=== PATIENT | female | born 1945 | race Caucasian/White ===

== ENCOUNTER 2022-01-29 17:34 | Inpatient (IN) | payer MEDICARE, MEDICAID ==
[~2022-01-29] VITALS: Ht 152.4 cm; Wt 91.2 kg
[2022-01-29] MEDS ORDERED: IV NORMAL SALINE 1,000ML 1,000 ML IV ONE ×2 (17:45→20:00)
--- NOTE | 2022-01-29 17:50 | PHYS DOC ---
Past History Past Surgical History: No Surgical History (KAROLINA ELLER DO) General Adult EDM: Chief Complaint: MECHANICAL FALL HPI: HPI: 77-year-old female presents after mechanical fall at home. The patient states that she was drinking alcohol 3 days ago fell and laid on the floor for 3 days. She states she has not had any alcohol since that time. The patient states this is happened before. She felt a little bit better after 3 days so she did not come the emergency room last time. This time she has a chief complaint of posterior left thigh pain. The pain is a tightness "like a pulled muscle". It is most painful when she tries to put weight on it. She denies back pain. She has no other specific complaints. (KAROLINA ELLER DO) Review of Systems: Review of Systems: Constitutional: Denies fever or chills Eyes: Denies change in visual acuity HENT: Denies nasal congestion or sore throat Respiratory: Denies cough or shortness of breath Cardiovascular: Denies chest pain or edema GI: Denies abdominal pain, nausea, vomiting, bloody stools or diarrhea : Denies dysuria Musculoskeletal: Left posterior thigh pain Integument: Denies rash Neurologic: Denies headache, focal weakness or sensory changes Endocrine: Denies polyuria or polydipsia Lymphatic: Denies swollen glands Psychiatric: Denies depression or anxiety (KAROLINA ELLER DO) Current Medications: Current Meds: Current Medications Medications (Trade) Dose Ordered Sig/Grace Start Time Stop Time Status Last Admin Dose Admin Sodium Chloride 1,000 ml @ 1,000 mls/hr 1X ONCE 01/29/22 17:45 01/29/22 18:44 (KAROLINA ELLER DO) Allergies: Allergies: Allergies Coded Allergies Type Severity Reaction Last Updated Verified Penicillins Allergy Intermediate 01/29/22 Yes (KAROLINA ELLER DO) Physical Exam: PE: Constitutional: Well developed, well nourished, unkept, no acute distress, non- toxic appearance. [] HENT: Normocephalic, atraumatic, bilateral external ears normal, oropharynx moist, no oral exudates, nose normal. [] Eyes: PERRLA, EOMI, conjunctiva normal, no discharge. [] Neck: Normal range of motion, no tenderness, supple, no stridor. [] Cardiovascular: Heart rate regular rhythm, no murmur [] Lungs & Thorax: Bilateral breath sounds clear to auscultation [] Abdomen: Bowel sounds normal, soft, no tenderness, no masses, no pulsatile masses. [] Skin: Warm, dry, no erythema, no rash. [] Back: No tenderness, no CVA tenderness. [] Extremities: No tenderness, no cyanosis, no clubbing, ROM intact, no edema. [] Neurologic: Alert and oriented X 3, normal motor function, normal sensory function, no focal deficits noted. [] Psychologic: Affect normal, judgement normal, mood normal. [] (KAROLINA ELLER DO) Current Patient Data: Vital Signs: Vital Signs Date Time Temp Pulse Resp B/P (MAP) Pulse Ox O2 Delivery O2 Flow Rate FiO2 01/29/22 17:39 85 20 155/71 (99) 98 (KAROLINA ELLER DO) EKG: EKG: [] (KAROLINA ELLER DO) Radiology/Procedures: Radiology/Procedures: [] (KAROLINA ELLER DO) Heart Score: C/O Chest Pain: N/A Risk Factors: Risk Factors: DM, Current or recent (<one month) smoker, HTN, HLP, family history of CAD, obesity. Risk Scores: Score 0 - 3: 2.5% MACE over next 6 weeks - Discharge Home Score 4 - 6: 20.3% MACE over next 6 weeks - Admit for Clinical Observation Score 7 - 10: 72.7% MACE over next 6 weeks - Early Invasive Strategies (KAROLINA ELLER DO) Course & Med Decision Making: Course & Med Decision Making Pertinent Labs and Imaging studies reviewed. (See chart for details) The patient's initial exam was benign. She had no obvious discomfort with movement of the left leg. She did wince slightly when I pressed on her left hip but she states that it does not hurt. I have ordered labs as well as left hip x-rays just to be sure. The patient's work-up is pending. I am signing the patient out to to the fast food shift lead at 1800. [] (KAROLINA ELLER DO) Course & Med Decision Making Soren -patient's imaging and labs are unremarkable but she does have significant proteinuria and ketonuria. She was given IV fluids in the emergency department. Unfortunately patient is failing to thrive. She will be admitted for further observation and treatment and likely placement. (JENNIFER GARCIA DO) Dragon Disclaimer: Dragon Disclaimer: This electronic medical record was generated, in whole or in part, using a voice recognition dictation system. (KAROLINA ELLER DO) Departure Departure: Impression: Primary Impression: Failure to thrive in adult Additional Impressions: Inability to ambulate due to multiple joints Proteinuria Ketonuria Disposition: ADMITTED INPATIENT Admitting Physician: Tan Mora (JENNIFER GARCIA DO) Condition: STABLE KAROLINA ELLER DO January 29, 2022 17:50 JENNIFER GARCIA DO January 29, 2022 20:12
--- NOTE | 2022-01-29 18:16 | RAD ---
Exam: Left hip 2 views INDICATION: Fall, left hip and pelvic pain TECHNIQUE: Frontal view of pelvis with frontal and frog-leg lateral views left hip Comparisons: None FINDINGS: Bone mineralization is normal. No acute fractures. Soft tissues are unremarkable. Joint spaces are we ll-maintained. IMPRESSION: No acute osseous abnormality Electronically signed by: Reina Bah MD (01/29/2022 6:14 PM) KANDI
[2022-01-29 18:23] LABS: BASO # 0.1 x10^3/uL (0.0-0.2); BASO % 1 % (0-3); EOS # 0.1 x10^3/uL (0.0-0.7); EOS % 1 % (0-3); HEMATOCRIT 48.3 % (36.0-47.0); HEMOGLOBIN 16.1 g/dL (12.0-15.5); LYMPH % 13 % (24-48); MEAN CORPUSCULAR HEMOGLOBIN 30 pg (25-35); MEAN CORPUSCULAR HGB CONC 33 g/dL (31-37); MEAN CORPUSCULAR VOLUME 90 fL (79-100); MONO # 0.5 x10^3/uL (0.0-1.1); MONO % 6 % (0-9); NEUT # 6.5 x10^3uL (1.8-7.7); NEUT % 79 % (31-73); PLATELET COUNT 221 x10^3/uL (140-400); RED BLOOD COUNT 5.38 x10^6/uL (3.50-5.40); RED CELL DISTRIBUTION WIDTH 17.2 % (11.5-14.5); WHITE BLOOD COUNT 8.2 x10^3/uL (4.0-11.0)
[2022-01-29 18:56] LABS: CALCIUM 9.9 mg/dL (8.5-10.1); CREATININE 0.7 mg/dL (0.6-1.0); GFR 81.6; POTASSIUM 3.9 mmol/L (3.5-5.1)
[2022-01-29 19:09] LABS: ALBUMIN 3.6 g/dL (3.4-5.0); ALBUMIN/GLOBULIN RATIO 1.3 (1.0-1.7); TOTAL PROTEIN 6.3 g/dL (6.4-8.2)
[2022-01-29 19:32] LABS: BARBITURATES NEG (NEG); BENZODIAZEPINES NEG (NEG); CANNABINOIDS NEG (NEG); COCAINE NEG (NEG); METHADONE NEG (NEG); OPIATES NEG (NEG); PHENCYCLIDINE NEG (NEG)
[2022-01-29 19:33] LABS: AMPHETAMINE/METHAMPHETAMINE NEG (NEG)
[2022-01-29 19:51] LABS: BACTERIA,URINE FEW /HPF (0-FEW); CLARITY,URINE CLEAR; COLOR,URINE YELLOW; GLUCOSE,URINE NEG (NEG); NITRITE,URINE NEG (NEG); RBC,URINE OCC /HPF (0-2); SQUAMOUS EPITHELIAL CELL,UR FEW /LPF; UROBILINOGEN,URINE 0.2 mg/dL (0.2 mg/dL)
[2022-01-29] MEDS ORDERED: ONDANSETRON PF 4 MG/2 ML VIAL. IVP PRN (20:15)
[2022-01-29] MEDS ORDERED: MORPHINE SULFATE 2 MG/ML DISP.SYRIN. IVP PRN (20:15)
[2022-01-29 22:10] VITALS: BP 174/84
--- NOTE | 2022-01-29 22:10 | NUR ---
77 y/o female admitted to 109 per EMS from ED. Pt. states she drank too much on the evening of 01/26/22 et fell et was unable to get up. Pt. states she remained on the floor until today when she was taken to the ED. She states during that time she had not eaten because she was unable to reach food et was only able to drink orange juice et water. Pt. refused offer of sandwich or other snack. Pt. states she is an alcoholic and drinks approximately 1/4 a gallon of Aki Rey per day. She states she is et has no children. Her only living sibling is a brother in [place]. She lives alone. Pt. states she was in AA 6 years ago but relapsed 3 years ago et has just drank increased amounts since then. Denies any emotional trigger causing her increase in drinking. States she uses a walker or four legged cane at home for balance when walking. Pt denies any medical problems or current medications except PRN OTC ibuprofen or TUMS. Pt. states the only reason she came to the ED today was because when she tries to straighten her left leg out it causes pain in the back of her thigh. She states she is unable to stand because of this. When pt. was placed on bedpan she was able to turn from side to side. No bruising or redness noted to back of left thigh. Pillow placed under knee for support. Pt. denies discomfort at rest.
[2022-01-30 03:00] VITALS: BP 154/80
[2022-01-30 05:31] VITALS: BP 178/84
--- NOTE | 2022-01-30 06:26 | NUR ---
AM assessment completed. Pt. continues to c/o left dorsal thigh pain with movement. Pt. requests bedpan. Refuses to attempt to get up to BSC or bathroom. Is able to lift off bed for bedpan insertion without difficulty. Pt able to straighten left leg this AM. No changes from previous assessment. Has rested quietly through majority of NOC.
--- NOTE | 2022-01-30 08:33 | NUR ---
Pt states she struggles to straighten left leg d/t posterior thigh pain. She pointed to a spot above her posterior left knee, cramping pain. She wants to sleep and wants to save her breakfast for later. Pt alcohol use discussed. Pt states she drinks because she is unhappy and with her life and has "nothing to show for" her 77 years. She states solitude is easier than justifying her life choices to others. We discussed things about her life she doesn't like and things she used to enjoy. She likes to read biographies and may have an interest in volunteering at the [employer] to keep her busy and social if she had a way to get there. Usually she uses a taxi to shop but doesn't like to pay for it so she spends the money on alcohol. Pt states she doesn't bathe. Encouraged pt to take a shower or bed bath. She agreed to possibly later. Will offer again after breakfast.
--- NOTE | 2022-01-30 09:38 | HP ---
DATE OF SERVICE: 01/30/2022 ADMIT DATE: 01/29/2022 ATTENDING PHYSICIAN: Dr. Mora. CHIEF COMPLAINT: Fall at home. HISTORY OF PRESENT ILLNESS: The patient is a 77-year-old female who lives alone. She is an alcoholic. She drinks a half a gallon of Jovani Beam every 3-4 days. She fell 3 days ago. She laid on the floor for 3 days, could not get up. There is no evidence of rhabdomyolysis. She presented to the ED. No obvious long bone fractures. She is very depressed. She is self medicating. She cannot take care of herself. She cannot bear weight on the left leg. She is admitted then for further treatment. She has a history remotely of alcohol withdrawal seizures. She has not had a DUI. ALLERGIES: SHE HAS ALLERGIES TO PENICILLIN. PAST SURGICAL HISTORY: There is no surgical history. SOCIAL HISTORY: She lives in a subsidized section 8 housing here in [facility]. ALLERGIES: She has no other family members available. She is retired as a account receivable clerk. CURRENT MEDICATIONS: None. ALLERGIES: None. SOCIAL HISTORY: She is a nonsmoker. Alcohol use, Jovani Beam is a preferred bourbon of choice, a half a gallon will last her 3-4 days. She prefers to mix it with Coca-Cola. FAMILY HISTORY: Father was an electrical experimental mechanic who ended up working in the [employer], but he at age 57. Mom of old age, exact details are unclear. No other family available. No children. REVIEW OF SYSTEMS: Significant for the chronic alcohol use. There is underlying depression. All other systems reviewed and turned out to be negative. PHYSICAL EXAMINATION: GENERAL: When I saw her, this is a pleasant elderly female. VITAL SIGNS: Her initial vital signs showed a blood pressure of 170/64, pulse is 80 and regular. She was afebrile, oxygen saturation 98% on room air. HEENT: Head is without trauma. Pupils are reactive. Sclerae nonicteric. The oropharynx is clear. NECK: Supple, no bruits identified. LUNGS: Otherwise clear. CARDIOVASCULAR: Regular heart tones. ABDOMEN: Soft. EXTREMITIES: Without edema. I examined her legs. There is decreased range of motion of the left leg. There is no obvious effusion. She is able to lift her leg up against gravity. It hurts to bear weight. There is no obvious bruising or open wounds. No obvious long bone fractures. PERTINENT LABORATORY STUDIES: Her hemoglobin is 16.1 g/dL with a white count of 6200. Electrolytes, BUN and creatinine all within normal range. Lactate was normal. Transaminases are normal. ASSESSMENT: 1. A 77-year-old female with mechanical fall at home. 2. Chronic alcoholism. 3. Underlying depression with self medication. 4. Essential hypertension related to alcohol use. PLAN: 1. Admit to the inpatient unit. 2. We shall monitor her blood pressure. 3. Monitor for signs of withdrawal. 4. Diet as tolerated. 5. Social service will discuss with the patient. She needs a higher level of care. We will try to get her to a subacute rehab next week. RADHA DR: Sergei TID: [id number]
[2022-01-30] MEDS: LIDOCAINE (700MG/PATCH) PATCH. TD SCH (09:45)
[2022-01-30 11:00] VITALS: BP 179/69
[2022-01-30 15:00] VITALS: BP 167/73
[2022-01-30 19:10] VITALS: BP 184/82
[2022-01-30] MEDS: PATCH REMOVAL. MC SCH (21:00)
[2022-01-30 23:00] VITALS: BP 184/82
[2022-01-31 03:00] VITALS: BP 170/78
[2022-01-31 06:00] VITALS: BP 186/91
--- NOTE | 2022-01-31 06:17 | NUR ---
AM assessment completed. Pt. cont. to refuse to attempt using BSC or bathroom. Requests bedpan only. Pt. is able to put feet on bed, bend knees and pull self up in bed using upper side rails without assist. Pt. puts feet on bed, bends knees et lifts buttocks up off bed for bedpan without difficulty. Denies discomfort this AM. States left posterior thigh still hurts "If I bend it just right". No changes from previous assessment.
[2022-01-31] MEDS: LIDOCAINE (700MG/PATCH) PATCH. TD SCH (08:42)
[2022-01-31] MEDS: ATENOLOL 50 MG TABLET PO SCH (09:00)
[2022-01-31] MEDS: SERTRALINE 100 MG TABLET. PO SCH (09:30)
--- NOTE | 2022-01-31 10:39 | NUR ---
Nursing note PT in bed, verbalized pain and wants her lidocane patch. Morning assessments done, medications administered per doctors orders. PT assessed by doctor and an order for blood pressure medication was put in by the doctor. Blood pressure medication administered per doctors orders. Breakfast try given to patient. PT verbalized no other needs. Bed low, call light within reach. Will continue to monitor.
[2022-01-31 11:51] VITALS: BP 195/93
[2022-01-31 15:27] VITALS: BP 177/77
--- NOTE | 2022-01-31 17:29 | NUR ---
Nursing note PT in bed, verbalized pain. PT assisted to the chair with help from RN, nursing maternity floor supervisor and MOLASSES PREPARER. Bed changed, PT cleaned and changed by MOLASSES PREPARER. PT verbalized she feels comfortable sitting in the chair and will like to sit for some time. PT verbalized no other need. PT assisted back to bed 2 and 1/2 hours later. Bed low, call light within reach. PT verbalized no other needs.
[2022-01-31 19:00] VITALS: BP 187/79
--- NOTE | 2022-01-31 20:24 | NUR ---
NOTIFIED DR OF PTS BP STILL BEING ELEVATED. NO ORDERS RECEIVED.
[2022-01-31] MEDS: NYSTATIN TOPICAL POWDER 15GM BOTTLE. TP SCH (20:27)
[2022-01-31] MEDS: PATCH REMOVAL. MC SCH (20:27)
--- NOTE | 2022-01-31 21:59 | PN ---
DATE: 01/31/2022 ATTENDING PHYSICIAN: Dr. Mora. SUBJECTIVE: The patient is doing a little better. She is still very depressed and teary eye. The Lidoderm patch is helping with some of the pain. She is worried about what is going to happen. There are no signs of withdrawal or DTs. OBJECTIVE FINDINGS: VITAL SIGNS: Blood pressure is still elevated. It is 170-180 systolic, persistently. She is afebrile, pulse is 83 and regular, and her oxygen saturation 97% on room air. HEENT: Head is without trauma. Pupils are reactive. Sclerae nonicteric. The oropharynx is clear. NECK: Supple, no bruits identified. LUNGS: Clear to auscultation. CARDIOVASCULAR: Showed regular heart tones. No gallops. ABDOMEN: Soft. No guarding. EXTREMITIES: Show trace edema. NEUROLOGIC: Focally intact. Speech is fluent, very flat affect. ASSESSMENT: 1. A 77-year-old female with mechanical fall at home. 2. Chronic alcoholism. 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 4. Essential hypertension. 5. Underlying depression. PLAN: 1. I have started her on Tenormin 100 mg daily for her blood pressure. 2. Zoloft 100 mg p.o. daily. 3. Underlying endogenous longstanding depression. 4. Continue monitoring for signs of withdrawal. 5. Continue Lidoderm patch. 6. We shall await for subacute rehab placement tomorrow. IVONE DR: YOLANDA/alexandra TID: [id number]
[2022-01-31 22:38] VITALS: BP 161/68
[2022-02-01 07:00] VITALS: BP 174/76
[2022-02-01] MEDS: NYSTATIN TOPICAL POWDER 15GM BOTTLE. TP SCH (09:00)
[2022-02-01] MEDS: SERTRALINE 100 MG TABLET. PO SCH (09:00)
[2022-02-01] MEDS: ATENOLOL 50 MG TABLET PO SCH (09:15)
[2022-02-01] MEDS: LIDOCAINE (700MG/PATCH) PATCH. TD SCH (09:47)
[2022-02-01 11:12] VITALS: BP 184/94
--- NOTE | 2022-02-01 12:35 | NUR ---
Discharge paperwork reviewed with patient. Gave patient list of new medications and explained the purpose of each. Patient expressed that she understood the importance of these medications and to follow-up with her PCP. Gave contact info for [facility]. Explained that she will be transported to the facility via ambulance. Patient signed discharge paperwork and confirmed that all of her personal items were in her possession. Left unit on stretcher via EMS. MAERICA DICKSON
--- NOTE | 2022-02-01 16:43 | DS ---
DATE OF DISCHARGE: 02/01/2022 ATTENDING PHYSICIAN: Dr. Mora. FINAL DISCHARGE DIAGNOSES: 1. Mechanical fall at home. 2. Chronic alcoholism. 3. Alcoholic neuropathy causing some gait ataxia. 4. Essential hypertension, not treated. 5. Underlying major depression. HISTORY AND PHYSICAL: The patient is a 77-year-old female a chronic alcoholic, admitted through the ED with frequent falls. She cannot care for herself. She lives alone. PHYSICAL EXAMINATION: Please see the dictated note. PERTINENT LABORATORY AND X-RAY STUDIES: On admission, her hemoglobin 16.1 g/dL, white count 8200. Electrolytes within normal range. Serology negative for coronavirus. Toxicology screen was negative. IMAGING STUDIES: X-rays of the pelvis showed no acute fractures. COURSE IN THE HOSPITAL: The patient was admitted. She was sober. We will monitor her signs of withdrawal. Blood pressure was treated with Tenormin. Depression was treated with initiation of Zoloft. Pain was managed with Lidoderm patch. On the third hospital day, arrangements were then made for her to go to a local facility in [facility] I have recommended Zoloft 100 mg p.o. daily. Whether or not she wants to continue, this remains to be seen. Tenormin 100 mg p.o. daily and a Lidoderm 5% patch daily. Strong encouragement to avoid further alcohol use when she goes back home, whether or not she will quit drinking remains to be seen. In any event, the patient was discharged from our hospital in stable condition with explicit drug and followup care. Total discharge time [address]: Sergei TID: [id number]
== END 2022-02-01 12:35 | DRG 74 ==
LOC: ER 17:34 → 1 SOUTH 20:08
PROVIDERS: ADMIT Hospitalist; ATTEND Hospitalist
DX: G62.1 Alcoholic polyneuropathy (principal); F10.20 Alcohol dependence, uncomplicated; F32.9 Major depressive disorder, single episode, unspecified; I10 Essential (primary) hypertension; R29.6 Repeated falls; R62.7 Adult failure to thrive; Z63.4 Disappearance and death of family member; Z60.2 Problems related to living alone; W18.39XA Other fall on same level, initial encounter; Y93.89 Activity, other specified; Y92.89 Other specified places as the place of occurrence of the external cause; Y99.8 Other external cause status; Z88.0 Allergy status to penicillin; Z20.822 Contact with and (suspected) exposure to COVID-19
CPT/HCPCS: 36415; 73502; 80053; 80307; 81001; 82550; 83605; 85025; 87086; 87426; 96360; 96361; G0480; U0003; 97530; 99285-25; J7030